=== PATIENT | female | born 2005 | race Caucasian/White ===

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

== ENCOUNTER 2023-11-16 12:04 | Outpatient (CLI) | payer OTHER, SELFPAY ==
[2023-11-18 13:40] LABS: DHEA-Sulfate 417 mcg/dL (51-321)
[2023-11-19 06:07] LABS: Progesterone 0.7 ng/mL (***); Prolactin 12.4 ng/mL (***)
[2023-11-21 18:06] LABS: Testosterone Total 43 ng/dL (2-45)
[2023-11-22 21:29] LABS: Anti Mullerian Hormone,Female 8.14 ng/mL (1.02-14.63)
== END 2023-11-16 12:05 | disposition home or self-care (01) ==
LOC: ANHLAB 12:05
PROVIDERS: PCP Student in an Organized Health Care Education/Training Program; Visit Provider Student in an Organized Health Care Education/Training Program
DX: N91.2 Amenorrhea, unspecified (principal)
CPT/HCPCS: 36415; 82627; 84144; 84146; 84403; 84443

== ENCOUNTER 2025-02-05 09:37 | Emergency (ER) | payer OTHER, SELFPAY ==
--- NOTE | ~2025-02-05 | CT_ITS ---
CT of the Abdomen and Pelvis: Indication: Abdominal pain Technique: 2.5 mm axial scans were obtained through the abdomen and pelvis following intravenous adm inistration of 100 cc of Omnipaque 350. Dose reduction technique was used on this scan by utilizing a utomated exposure control and iterative reconstruction technique. The dose-length product (DLP) was 8 94.51 mGy-cm. Findings: Scans through the lung bases demonstrate 3 mm left basilar pulmonary nodule (axial image 3 7). There is diffuse hepatic steatosis. The spleen, pancreas, gallbladder, adrenals and kidneys are withi n normal limits. No evidence of aortic aneurysm. No lymphadenopathy. No bowel obstruction or bowel wall thickening. There is no evidence to suggest acute appendicitis. Images through the pelvis were performed. Urinary bladder unremarkable. 2.8 cm right adnexal cyst not ed. No ascites. Impression: No definite acute abnormality seen. 2.8 cm right adnexal cyst. Diffuse hepatic steatosis. Reviewed, dictated and finalized at [facility]. Impression: No definite acute abnormality seen. 2.8 cm right adnexal cyst. Diffuse hepatic steatosis.
[2025-02-05 09:41] VITALS: BP 139/85; PULSE 77; RESP 16; TEMP 37; O2SAT 100
--- OUTSIDE RECORDS SUMMARY | 2025-02-05 09:55 | XMS_ITS | Clinical Summary ---
Author Organization [facility] Address [address] [place] [address] Care Team Providers Care Needle Leader Name Role Phone Alanis Chapman MD Primary Care Provider Source Comments [facility],non-owned Affiliates and Associated Physician Practices is amultiple site organization consisting of ambulatory clinics and hospital sitesin [place], [place] and [place]. This disclosure is being madepursuant to the Care Everywhere program and may not contain all information available regarding this patient. Last updated 18.[facility] Allergies No known active allergies Medications * Be aware that medications may not be up to date on this document. Alwaysverify current medications with the patient. No known medications Active Problems No known active problems Social History Tobacco Use Types Packs/Day Years Used Date Smoking Tobacco: Passive Smo ke Exposure - Never Smoker Smokeless Tobacco: Never Comments No Sex and Gender Information Value Date Recorded Sex Assigned at Not on file Legal Sex Female 8:29 AM US MARKETING DIRECTOR Gender Identity Not on file Sexual Orientation Not on file Last Filed Vital Signs Vital Sign Reading Time Taken Comments Blood Pressure 100/66 07/18/2017 9:41 AM US MARKETING DIRECTOR Pulse 101 07/18/2017 9:41 AM US MARKETING DIRECTOR Temperature 37.7 C (99.9 F) 07/18/2017 9:41 AM US MARKETING DIRECTOR Respiratory Rate 16 07/18/2017 9:41 AM US MARKETING DIRECTOR Oxygen Saturation 98% 07/18/2017 9:41 AM US MARKETING DIRECTOR Inhaled Oxygen Concentration - - Weight 66.2 kg (146 lb) 07/18/2017 9:41 AM US MARKETING DIRECTOR Height 170.2 cm (5' 7) 07/18/2017 9:41 AM US MARKETING DIRECTOR Body Mass Index 22.87 07/18/2017 9:41 AM US MARKETING DIRECTOR Plan of Treatment Health Maintenance Due Date Last Done Comments HIV SCREENING 11/13/2018 HPV VACCINE (1 - 3-dose series) 11/13/2018 CHLAMYDIA/GONORRHEA SCREENING 2019 MENINGOCOCCAL (Group B) VACC INE SHARED DECISION-MAKING (1 of 2 - Standard) 2019 HEPATITIS C SCREENING 11/09/2021 DTAP/TDAP/TD VACCINES (1 - Tdap) 11/13/2022 HEPATITIS B VACCINE (1 of 3 - 19+ 3-dose series) 11/13/2022 COVID-19 VACCINE (1 - 2023-2 5 season) 2024 DEPRESSION SCREENING 09/05/2024 INFLUENZA VACCINE (Season Ended) 2025 ZOSTER VACCINE (1 of 2) 11/13/2053 HIB VACCINE Aged Out No longer eligi ble based on patient's age to complete this topic MENINGOCOCCAL GROUPS A/C/Y/W VACCINE Aged Out No longer eligible b ased on patient's age to complete this topic PNEUMOCOCCAL VACCINE Aged Out No long er eligible based on patient's age to complete this topic Insurance [facility] Care Teams Needle Leader Relationship Specialty Start Date End Date Alanis Chapman MD [address] [place] [id number] PCP - General Pediatrics 10/18/16
--- OUTSIDE RECORDS SUMMARY | 2025-02-05 09:55 | XMS_ITS | CONTINUITY OF CARE DOCUMENT ---
Author Name debraglenyssaleem Address Unknown Organization [facility] Address [address] [place] [address] Phone [phone] Care Team Providers Care Clipper Machine Name Role Phone Sadiq SEGAL, Junior Unavailable NATAN GAITAN MD Unavailable NATAN GAITAN MD Unavailable INSURANCE PROVIDERS Payer name Policy type / Coverage type [facility] democrat ID [facility] (2) Medicaid [id number]
[2025-02-05 10:34] VITALS: BP 139/84; PULSE 86; RESP 14; O2SAT 100
[2025-02-05 10:41] LABS: BEDSIDEPREGUCG Negative (Negative)
[2025-02-05 10:42] LABS: Add Urine Microscopic? NO; Appearance Urine Clear (Clear); Basophils Percent Auto 0.3 % (0.2-1.2); Bilirubin Urine Negative (Negative); Blood Urine Negative (Negative); Color Urine Yellow (Yellow); Eosinophils Absolute Auto 0.1 K/mm3 (0-0.3); Eosinophils Percent Auto 1.1 % (0-4.4); Glucose Urine UA Negative (Negative); Hematocrit 43.2 % (37.0-47.0); Hemoglobin 13.8 g/dL (12.0-15.0); Immature Granulocyte Absolute 0.04 K/mm3 (0.00-0.031); Immature Granulocyte Percent A 0.5 % (0-0.5); Ketones Urine Negative (Negative); Leukocyte Esterase Ur Negative LEU/UL (Negative); Lymphocytes Absolute Auto 2.04 K/mm3 (0.9-3.2); Lymphocytes Percent Auto 23.2 % (18.3-44.2); Mean Corpuscular HGB Conc 31.9 g/dl (32-36); Mean Corpuscular Hemoglobin 29.1 pg (26-34); Mean Corpuscular Volume 90.9 fl (80-100); Mean Platelet Volume 9.2 fl (7.4-10.4); Monocytes Absolute Auto 0.5 K/mm3 (0.1-0.6); Monocytes Percent Auto 5.8 % (2.6-8.5); Neutrophils Absolute Auto 6.1 K/mm3 (1.3-6.7); Neutrophils Percent Auto 69.1 % (45.5-73.1); Nitrate Urine Negative (Negative); Platelet Count Result 359 k/mm3 (150-375); Protein Urine Negative (Negative); Red Blood Count 4.75 M/mm3 (4.2-5.4); Specific Grav Ur 1.011 (1.001-1.035); Urobilinogen Urine 0.2 mg/dL (<2.0); White Blood Count 8.8 K/mm3 (4.5-10.0)
[2025-02-05 10:53] LABS: Prothrombin Time 13.4 Seconds (11.1-14.7)
[2025-02-05 10:54] LABS: Partial Thromboplastin Time 29.9 Seconds (22.3-36.8)
[2025-02-05 10:58] LABS: Alanine Aminotransferase 31 U/L (6-35); Albumin Level 4.8 g/dL (3.5-5.1); Alkaline Phosphatase 79 U/L (38-126); Anion Gap 11 mmol/L (4-12); Aspartate Amino Transferase 32 U/L (14-36); Bilirubin,Total 0.3 mg/dL (0.2-1.3); Blood Urea Nitrogen 8 mg/dL (7-17); Calcium 9.4 mg/dL (8.4-10.2); Carbon Dioxide 29 mmol/L (22-30); Chloride 101 mmol/L (98-107); Estimated CRCL calculation 181 ml/min; Estimated Glomerular Filt Rate > 60; Glucose 102 mg/dL (65-110); Potassium 3.9 mmol/L (3.4-5.0); Sodium 141 mmol/L (137-145); Total Protein 8.9 g/dL (6.3-8.2)
[2025-02-05 11:01] VITALS: BP 124/83; PULSE 80; RESP 16; O2SAT 99
--- NOTE | 2025-02-05 11:11 | ED_ITS ---
HPI - Abdominal Pain General Chief Complaint: Abdominal Pain Stated Complaint: ABD PAIN BLOOD IN STOOL Time Seen by Provider: 02/05/25 10:25 Source: patient Mode of arrival: ambulatory Limitations: no limitations History of Present Illness HPI narrative: This is a 19 year old female that presents to the ER for lower abdominal pain. Reports hematochezia. Ongoing intermittently over the last year. Reports diffuse lower abdominal pain. Denies fever, vomiting, dysuria, hematuria. Related Data Home Medications ?Medication ?Instructions ?Recorded ?Confirmed ?Last Taken ?Type hydroxyzine HCl 50 mg tablet mg PO 02/13/24 02/13/24 Unknown History Allergies Allergy/AdvReac Type Severity Reaction Status Date / Time gluten AdvReac Abdominal Verified 02/05/25 09:39 Pain Review of Systems 2 Review of Systems: All systems reviewed & are unremarkable except as noted in HPI and below PMFSH Past Medical History Medical History (Updated 02/05/25 @ 12:06 by Keyla Hinson PA-C) PCOS (polycystic ovarian syndrome) Anxiety Migraines Surgical History Surgical History History of placement of ear tubes Family History Family History Mother Depression Social History Social History Smoking status: Current every day smoker Tobacco type: e-cigarettes/vaping Alcohol intake: never Substance use: never Substance use type: does not use Do You Feel Safe in your Home?: Yes Lack of Transportation: No Lack of Food: Never True Current Housing: I Have Housing Concerned About Future Housing: No Difficulty Paying Gas/Electric Bills: No Difficulty Paying for Meds: No Currently Unemployed: No Education: High School Diploma/GED Difficulty w/ Childcare or Family Care: No Living arrangements: other Additional living arrangements comments: boyfriend Occupation/Education: occupation Additional occupation/education comments: [employer] Gender identity (if verbalized by the patient): Female Sexual Orientation (if Verbalized by the Patient): Straight or Heterosexual Exam 2 Narrative: GENERAL: Well-appearing, well-nourished, and in no acute distress. HEAD: Normocephalic, atraumatic. EYES: EOMI. CHEST: Clear to auscultation. No respiratory distress. No wheezes rales or rhonchi HEART: Regular rate and rhythm. No murmur heard. Normal peripheral pulses. ABDOMEN: Soft, nondistended, normal active bowel sounds. Mild tenderness to palpation in the lower abdomen, without guarding EXTREMITIES: Normal range of motion. No edema. SKIN: Warm, dry, no rash. NEURO: No focal deficits. Alert and oriented x3. PSYCH: Normal mood and affect RECTAL: No active bleeding. Hemoccult positive. Small, external hemorrhoid, non-thrombosed Course Vital Signs Vital signs: Vital Signs Temperature 98.6 F 02/05/25 09:41 Pulse Rate 77 02/05/25 09:41 Respiratory Rate 16 02/05/25 09:41 Blood Pressure 139/85 02/05/25 09:41 Pulse Oximetry 100 02/05/25 09:41 Oxygen Delivery Room Air 02/05/25 09:41 Temperature 98.6 F 02/05/25 09:41 Pulse Rate 85 02/05/25 11:16 Respiratory Rate 14 02/05/25 11:16 Blood Pressure 127/82 02/05/25 11:16 Pulse Oximetry 99 02/05/25 11:16 Oxygen Delivery Room Air 02/05/25 09:41 MDM - Abdominal Pain MDM Narrative Medical decision making narrative: Patient presents the emergency department for lower abdominal pain, intermittent rectal bleeding. Ongoing over the last year. She is afebrile and nontoxic appearing. Her vitals are stable. Cbc without leukocytosis. Hemoglobin is normal. Metabolic panel without concerning findings. Urine without evidence of infection. test is negative. CT abdomen pelvis shows a small adnexal cyst, hepatic steatosis. Patient noted to have a small external hemorrhoid, no active bleeding. She was Hemoccult positive Patient updated on her workup and agrees with plan of care. Instructed to have further follow-up with gastroenterology. She was given warnings to return to the Differential Diagnosis Differential diagnosis: Likely constipation, diverticulitis, endometriosis and other (Hemorrhoid, fissure) Lab Data Attestation: I reviewed the patient's lab results. 02/05/25 10:35 02/05/25 10:35 Labs: Lab Results 02/05/25 02/05/25 Range/Units 10:34 10:35 WBC 8.8 (4.5-10.0) K/mm3 RBC 4.75 (4.2-5.4) M/mm3 Hgb 13.8 (12.0-15.0) g/dL Hct 43.2 (37.0-47.0) % MCV 90.9 (80-100) fl MCH 29.1 (26-34) pg MCHC 31.9 L (32-36) g/dl RDW 13.0 (11.5-14.5) % Plt Count 359 (150-375) k/mm3 MPV 9.2 (7.4-10.4) fl Immature Gran % (Auto) 0.5 (0-0.5) % Neut % (Auto) 69.1 (45.5-73.1) % Lymph % (Auto) 23.2 (18.3-44.2) % [place] % (Auto) 5.8 (2.6-8.5) % Eos % (Auto) 1.1 (0-4.4) % Baso % (Auto) 0.3 (0.2-1.2) % Lymph # (Auto) 2.04 (0.9-3.2) K/mm3 [place] # (Auto) 0.5 (0.1-0.6) K/mm3 Eos # (Auto) 0.1 (0-0.3) K/mm3 Baso # (Auto) 0.0 (0.0-0.1) K/mm3 Abs Immat Gran (auto) 0.04 H (0.00-0.031) K/mm3 Absolute Neuts (auto) 6.1 (1.3-6.7) K/mm3 Absolute Nucleated RBC 0.000 (0.0-0.012) K/mm3 Nucleated RBC % 0.0 (0.0-0.2) % PT 13.4 (11.1-14.7) Seconds INR 1.0 APTT 29.9 (22.3-36.8) Seconds Sodium 141 (137-145) mmol/L Potassium 3.9 (3.4-5.0) mmol/L Chloride 101 (98-107) mmol/L Carbon Dioxide 29 (22-30) mmol/L Anion Gap 11 (4-12) mmol/L BUN 8 (7-17) mg/dL Creatinine 0.51 L (0.7-1.0) mg/dL Estim Creat Clear Calc 181 ml/min Estimated GFR > 60 (59 - ) Glucose 102 (65-110) mg/dL Calcium 9.4 (8.4-10.2) mg/dL Total Bilirubin 0.3 (0.2-1.3) mg/dL AST 32 (14-36) U/L ALT 31 (6-35) U/L Alkaline Phosphatase 79 (38-126) U/L Total Protein 8.9 H (6.3-8.2) g/dL Albumin 4.8 (3.5-5.1) g/dL Urine Color Yellow (Yellow) Urine Appearance Clear (Clear) Urine pH 6.0 (5.0-9.0) Ur Specific [place] 1.011 (1.001-1.035) Urine Protein Negative (Negative) mg/dL Urine Glucose (UA) Negative (Negative) mg/dL Urine Ketones Negative (Negative) mg/dL Ur Blood (Man) Negative (Negative) Urine Nitrate Negative (Negative) Urine Bilirubin Negative (Negative) Urine Urobilinogen 0.2 (<2.0) mg/dL Leukocyte Esterase Rfl Negative (Negative) MODESTA/UL POC Urine HCG, Qual Negative (Negative) Imaging Data Radiologist's impression: ITS Impressions Abdomen/Pelvis CT 02/05/25 11:42 Impression: No definite acute abnormality seen. 2.8 cm right adnexal cyst. Diffuse hepatic steatosis. Critical Care Time Critical Care Time Critical Care Time: No Discharge Plan Discharge Clinical Impression: Bilateral lower abdominal pain, Bright red blood per rectum, Adnexal cyst Patient Disposition: Home Condition: Stable Instructions: Ovarian Cyst (ED), Rectal Bleeding (ED), Abdominal Pain (ED) Additional Instructions: Return to the ER if you experience fever, abdominal pain with nausea and vomiting, you are unable to keep down liquids or solids, or any other symptoms that are concerning to you Remain well hydrated. Increase fresh fruit and vegetables in your diet. Colace and Miralax as needed Follow up with gastroenterology Patient Language: Portuguese Prescriptions: No Action drospirenone-ethinyl estradiol [Enedelia (28)] 3-0.03 mg tablet 1 tablet PO DAILY Qty: 84 3RF hydroxyzine HCl 50 mg tablet PO ondansetron 4 mg tablet,disintegrating 4 mg PO Q6-8H PRN (Reason: nausea and vomiting) Qty: 90 0RF Follow-up/Referrals: Juanjo Bah MD [Physician] - UNKNOWN,DOCTOR [Primary Care Provider] -
[2025-02-05 11:16] VITALS: BP 127/82; PULSE 85; RESP 14; O2SAT 99
--- OUTSIDE RECORDS SUMMARY | 2025-02-05 11:26 | XMS_ITS | CONTINUITY OF CARE DOCUMENT ---
Author Name debraglenyssaleem Address Unknown Organization [facility] Address [address] [place] [address] Phone [phone] Care Team Providers Care Space Officer Name Role Phone Sadiq SEGAL, Junior Unavailable NATAN GAITAN MD Unavailable NATAN GAITAN MD Unavailable INSURANCE PROVIDERS Payer name Policy type / Coverage type [facility] libertarian [facility] (2[facility] Medicaid [id number]
--- OUTSIDE RECORDS SUMMARY | 2025-02-05 11:26 | XMS_ITS | Clinical Summary ---
Author Organization [facility] Address [address] [address] Care Team Providers Care Planer Offbearer Name Role Phone Alanis Chapman MD Primary Care Provider Source Comments [employer],non-owned Affiliates and Associated Physician Practices is amultiple site organization consisting of ambulatory clinics and hospital sitesin [place], [place], [place] and [place]. This disclosure is being madepursuant to the Care Everywhere program and may not contain all information available regarding this patient. 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 Gender Identity Not on file Sexual Orientation Not on file Last Filed Vital Signs Vital Sign Reading Time Taken Comments Blood Pressure 100/66 07/18/2017 9:41 AM HANDHOLE MACHINE OPERATOR Pulse 101 07/18/2017 9:41 AM HANDHOLE MACHINE OPERATOR Temperature 37.7 C (99.9 F) 07/18/2017 9:41 AM HANDHOLE MACHINE OPERATOR Respiratory Rate 16 07/18/2017 9:41 AM HANDHOLE MACHINE OPERATOR Oxygen Saturation 98% 07/18/2017 9:41 AM HANDHOLE MACHINE OPERATOR Inhaled Oxygen Concentration - - Weight 66.2 kg (146 lb) 07/18/2017 9:41 AM HANDHOLE MACHINE OPERATOR Height 170.2 cm (5' 7) 07/18/2017 9:41 AM HANDHOLE MACHINE OPERATOR Body Mass Index 22.87 07/18/2017 9:41 AM HANDHOLE MACHINE OPERATOR Plan of Treatment Health Maintenance Due Date [...] patient's age to complete this topic Insurance [facility] Care Teams Planer Offbearer Relationship Specialty Start Date End Date Alanis Chapman MD [address] [place] [id number] PCP - General Pediatrics 10/18/16
[2025-02-05 12:18] VITALS: BP 128/70; PULSE 80; RESP 16; O2SAT 98
== END 2025-02-05 12:20 | disposition home or self-care (01) ==
PROVIDERS: Emergency Medicine; Emergency Provider Physician Assistant
DX: F17.290 Nicotine dependence, other tobacco product, uncomplicated (principal); R10.30 Lower abdominal pain, unspecified; K62.5 Hemorrhage of anus and rectum; N83.201 Unspecified ovarian cyst, right side
CPT/HCPCS: 36415; 74177; 80053; 81003; 81025; 85025; 85610; 85730; 99284; Q9967

== ENCOUNTER 2025-06-19 16:54 | Emergency (ER) | payer OTHER, SELFPAY ==
--- NOTE | 2025-06-19 16:58 | ED_ITS ---
HPI - General Adult General Chief complaint: Upper Respiratory Infection Stated complaint: nausea, vomiting, sweats, chills Source: patient Mode of arrival: ambulatory Limitations: no limitations History of Present Illness HPI narrative: Pt is a 19 y/o female presenting with multiple complaints. Pt reports nausea, vomiting, sweats, chills, congestion that have waxed and waned since the end of May. Said when she vomits, she feels like her throat is closing and that sensation resolves without intervention. States she has been evaluated by ER and another UC since onset of sx, unremarkable diagnostic work up with the exception of fluid behind my ears so they put my on amoxicillin. Additional tx initiated HIGH PRESSURE OPERATOR includes benadryl for anxiety and zofran for N,V. No known exposure to COVID,FLU,STREP,PNA. No additional complaints. Related Data Home Medications ?Medication ?Instructions ?Recorded ?Confirmed ?Last Taken ?Type amoxicillin 875 mg-potassium tablet 06/19/25 Unknown History clavulanate 125 mg tablet ondansetron 4 mg disintegrating mg 06/19/25 Unknown H istory tablet Allergies Allergy/AdvReac Type Severity Reaction Status Date / Time gluten AdvReac Abdominal Verified 06/19/25 17:13 Pain PMFSH Past Medical History Medical History PCOS (polycystic ovarian syndrome) Anxiety Migraines Surgical History Surgical History History of placement of ear tubes Family History Family History Mother Depression Social History Social History Smoking status: Former smoker Tobacco type: e-cigarettes/vaping Alcohol intake: current Alcohol use details: socially Substance use: never Substance use type: does not use Do You Feel Safe in your Home?: Yes Lack of Transportation: No Lack of Food: Never True Current Housing: I Have Housing Concerned About Future Housing: No Difficulty Paying Gas/Electric Bills: No Difficulty Paying for Meds: No Currently Unemployed: No Education: High School Diploma/GED Difficulty w/ Childcare or Family Care: No Living arrangements: with family Additional living arrangements comments: boyfriend Occupation/Education: occupation 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 HEAD: Normocephalic, atraumatic. EYES: EOMI. No redness or drainage. Conjunctivae normal. ENT: Mucous membranes pink and moist. Nares clear. No rhinorrhea. TMs normal bilaterally. Throat normal. Uvula midline. voice normal. No trismus NECK: Normal AROM. Supple. No lymphadenopathy. CHEST: No respiratory distress. Clear to auscultation. HEART: Regular rate and rhythm. No murmur appreciated. Normal peripheral pulses. ABDOMEN: Soft, nontender, nondistended, normal active bowel sounds. MUSCULOSKELETAL: No bony tenderness. EXTREMITIES: Normal range of motion. No edema. SKIN: Warm, dry, no rash. Capillary refill normal. Normal skin turgor. NEURO: No focal deficits. Alert and oriented x3. Gait steady. PSYCH: Normal affect. No signs of depression or anxiety. Course Course Level of Care: Express Care Visit Vital Signs Vital signs: Vital Signs Temperature 97.7 F 06/19/25 17:05 Pulse Rate 77 06/19/25 17:05 Respiratory Rate 18 06/19/25 17:05 Blood Pressure 115/76 06/19/25 17:05 Pulse Oximetry 100 06/19/25 17:05 Oxygen Delivery Room Air 06/19/25 17:05 Temperature 97.7 F 06/19/25 17:05 Pulse Rate 77 06/19/25 17:05 Respiratory Rate 18 06/19/25 17:05 Blood Pressure 115/76 06/19/25 17:05 Pulse Oximetry 100 06/19/25 17:05 Oxygen Delivery Room Air 06/19/25 17:05 Medical Decision Making MDM Narrative Medical decision making narrative: Made aware of limitations of evaluation in [facility] setting--mono negative. VERY anxious. Physical exam unremarkable.VSS States sx began shortly after she took her first (and only) dose of tirzepitide. Viral syndrome vs anxiety about health vs worried well vs medication side effect?? Hx of anxiety, worse over the last few weeks. Mother at bedside and states she thinks this is all anxiety related. Encouraged her to f/u with PCP, strict go to ER precautions discussed at length. Vital Signs Vital Signs: Vital Signs Temperature 97.7 F 06/19/25 17:05 Pulse Rate 77 06/19/25 17:05 Respiratory Rate 18 06/19/25 17:05 Blood Pressure 115/76 06/19/25 17:05 Pulse Oximetry 100 06/19/25 17:05 Oxygen Delivery Room Air 06/19/25 17:05 Temperature 97.7 F 06/19/25 17:05 Pulse Rate 77 06/19/25 17:05 Respiratory Rate 18 06/19/25 17:05 Blood Pressure 115/76 06/19/25 17:05 Pulse Oximetry 100 06/19/25 17:05 Oxygen Delivery Room Air 06/19/25 17:05 Lab Data Lab results reviewed: Yes I reviewed the patient's lab results. Labs: Lab Results 06/19/25 Range/Units 17:45 POC Monoscreen Negative (Negative) Discharge Plan Discharge Clinical Impression: Anxiety about health, Acute viral syndrome Patient Disposition: Home Condition: Stable Instructions: Antibiotic Form, Anxiety (ED) Additional Instructions: Go straight to ER should your symptoms become worse or should any new symptoms develop Patient Language: Chadian Prescriptions: No Action ondansetron 4 mg tablet,disintegrating amoxicillin-pot clavulanate 875-125 mg tablet Follow-up/Referrals: PHYSICIAN,ASSISTANT CLINICAL DIRECTOR [Primary Care Provider, Internal Medicine] Catrachito Mckeon MD [Physician, Family Practice] - 06/20/25 Time of Disposition: 17:30
[2025-06-19 17:05] VITALS: BP 115/76; PULSE 77; RESP 18; TEMP 36.5; O2SAT 100
[2025-06-19 17:46] LABS: EDMONONEGPOS Negative (Negative)
== END 2025-06-19 17:51 | disposition home or self-care (01) ==
PROVIDERS: Emergency Provider Registered Nurse
DX: F41.9 Anxiety disorder, unspecified (principal); B34.9 Viral infection, unspecified; Z87.891 Personal history of nicotine dependence; E28.2 Polycystic ovarian syndrome
CPT/HCPCS: 36416; 86308; 99212; G0463